=== PATIENT | female | born 1985 | race Two or more races ===

== ENCOUNTER → 2017-08-31 | Outpatient (REF) | payer OTHER | LOC: M LAB REF 10:09 | DX: J02.9 Acute pharyngitis, unspecified (principal) ==

== ENCOUNTER 2018-05-01 18:35 | Emergency (ER) | payer OTHER ==
[~2018-05-01] VITALS: Ht 160 cm; Wt 68.2 kg
[2018-05-01 18:36] VITALS: BP 139/71
[2018-05-01] MEDS ORDERED: VENTAER (18:41)
[2018-05-01] MEDS ORDERED: CETI10TA (18:41)
[2018-05-01] MEDS ORDERED: LIDOCAINE 2% MDV 20 ML VIAL SC ONE (19:45)
[2018-05-01] MEDS ORDERED: ADACEL/BOOSTRIX VACCINE (DIPHTH/PERTUSS/ACELL/TETANUS)0.5ML SYR (90715) IM ONE (19:45)
[2018-05-01] MEDS ORDERED: LIDOCAINE 2% MDV 20 ML VIAL As Ordered ONE (19:46)
--- NOTE | 2018-05-01 19:46 | REP ---
Fifth digit right hand four views: There is a nondisplaced fracture at the distal tuft of the distal phalange. No other fractures. No dislocations. Mineralization joint spaces are otherwise unremarkable. Impression: The distal tuft nondisplaced fracture. Electronically Signed by Adrián Castaneda MD 05/01/2018 07:37 P
[2018-05-01] MEDS ORDERED: CEPHALEXIN 500 MG CAP PO ONE (20:15)
[2018-05-01] MEDS ORDERED: KEFL500C17 PO (20:15)
[2018-05-01] MEDS ORDERED: NORCOTAB PO (20:15)
[2018-05-01] MEDS ORDERED: NORCO 5/325MG TABLET (BULK FOR ED) PO ONE (20:15)
== END 2018-05-01 20:31 | disposition home or self-care (01) ==
LOC: M ED 18:35
DX: S62.664B Nondisplaced fracture of distal phalanx of right ring finger, initial encounter for open fracture (principal); W23.0XXA Caught, crushed, jammed, or pinched between moving objects, initial encounter; Y92.018 Other place in single-family (private) house as the place of occurrence of the external cause; J30.89 Other allergic rhinitis

== ENCOUNTER → 2018-06-12 | Outpatient (REF) | payer OTHER ==
[~2018-06-12] MED LIST: CETI10TA; KEFL500C17 PO; NORCOTAB PO; VENTAER
[2018-06-12 19:50] LABS: ALBUMIN 4.2 GM/DL (3.2-5.2); ALT/SGPT 28 U/L (12-78); BILIRUBIN,TOTAL 0.3 MG/DL (0.2-1.0); BLOOD UREA NITROGEN 23 MG/DL (7-18); CALCIUM LEVEL 8.6 MG/DL (8.5-10.1); CARBON DIOXIDE LEVEL 27 MEQ/L (21-32); CHLORIDE LEVEL 105 MEQ/L (98-107); CREATININE FOR GFR 0.68 MG/DL (0.55-1.30); GLOMERULAR FILTRATION RATE > 60.0 (>60); GLUCOSE, FASTING 79 MG/DL (70-100); POTASSIUM SERUM 3.7 MEQ/L (3.5-5.1); SODIUM LEVEL 140 MEQ/L (136-145); TOTAL PROTEIN 7.3 GM/DL (6.4-8.2)
[2018-06-12 20:08] LABS: BASO % 0.4 % (0.0-1.0); EOS # 0.1 10^3/uL (0.0-0.50); EOS % 0.7 % (0.0-3.0); HEMATOCRIT 36.5 % (36.0-47.0); HEMOGLOBIN 12.6 g/dl (12.0-15.5); LYMPH # 2.3 10^3/uL (1.5-4.5); LYMPH % 22.7 % (24.0-44.0); MEAN CORPUSCULAR HGB CONC 34.5 g/dl (32.0-36.5); MEAN CORPUSCULAR VOLUME 89.9 fl (80.0-96.0); MONO # 0.6 10^3/uL (0.0-0.8); MONO % 5.6 % (0.0-5.0); NEUTROPHILS # 7.2 10^3/uL (1.8-7.7); NEUTROPHILS % 70.4 % (36.0-66.0); PLATELET COUNT, AUTOMATED 239 10^3/uL (150-450); RED BLOOD COUNT 4.06 10^6/uL (4.00-5.40); WHITE BLOOD COUNT 10.2 10^3/uL (4.0-10.0)
== END ==
LOC: M LABDRWAD 19:16
PROVIDERS: ATTEND Physician Assistant
DX: K92.1 Melena (principal)

== ENCOUNTER → 2018-12-26 | Outpatient (REF) | payer OTHER ==
[~2018-12-26] MED LIST changes: +HYDR-3715 PO; -NORCOTAB PO
[2018-12-29 11:13] LABS: HEPATITIS B SURFACE ANTIBODY POSITIVE (POSITIVE); HEPATITIS C VIRUS ABY INDEX 0.1 INDEX (<0.8); HIV 1&2 SCREEN CENTAUR NEGATIVE (NEGATIVE)
[2018-12-29 14:33] LABS: CHLAMYDIA DNA AMPLIFICATION NEGATIVE (NEGATIVE); GC DNA AMPLIFICATION NEGATIVE (NEGATIVE)
[2018-12-30 09:57] LABS: HCG, SERUM QUALITATIVE NEGATIVE (NEGATIVE)
== END ==
LOC: M SFHCWAGY 14:57
PROVIDERS: ATTEND Nurse Practitioner Family
DX: Z11.3 Encounter for screening for infections with a predominantly sexual mode of transmission (principal); N92.6 Irregular menstruation, unspecified

== ENCOUNTER → 2019-01-20 | Outpatient (REF) | payer OTHER | LOC: M SFHCWAGY 11:08 | PROVIDERS: ATTEND Nurse Practitioner Family | DX: Z12.4 Encounter for screening for malignant neoplasm of cervix (principal) ==

== ENCOUNTER 2019-02-01 08:04 | Emergency (ER) | payer OTHER ==
[~2019-02-01] VITALS: Ht 162.6 cm; Wt 69.8 kg
[2019-02-01] MEDS ORDERED: NORG1TAB4 (08:19)
[2019-02-01 10:39] LABS: INFLUENZA A AMPLIFICATION NEGATIVE (NEGATIVE); INFLUENZA B AMPLIFICATION NEGATIVE (NEGATIVE)
--- NOTE | 2019-02-01 11:03 | REP ---
Chest x-ray: Two views. History: Abnormal breath sounds on the right. . Comparison study: April 15, 2013 . Findings: The lungs are well inflated and free of infiltrate. The pleural angles are sharp. The heart size is normal. Pulmonary vasculature is not increased. No significant bony abnormality is seen. Nipple jewelry is noted incidentally. There is a small epicardial fat pad noted in the right cardiophrenic angle. This is unchanged from April 15, 2013. Impression: Negative chest x-ray. Electronically Signed by José Miguel Hernandez MD 02/01/2019 10:55 A
[2019-02-01 11:15] VITALS: BP 133/77
[2019-02-01] MEDS ORDERED: AUGM875T28 PO (11:18)
== END 2019-02-01 11:37 | disposition home or self-care (01) ==
LOC: M ED 08:04
DX: J01.90 Acute sinusitis, unspecified (principal); J45.909 Unspecified asthma, uncomplicated; Z79.3 Long term (current) use of hormonal contraceptives; Z87.891 Personal history of nicotine dependence

== ENCOUNTER → 2019-02-02 | Outpatient (CLI) | payer OTHER ==
[~2019-02-02] MED LIST changes: +AUGM875T28 PO; +NORG1TAB4
--- NOTE | 2019-02-02 09:16 | REP ---
ULTRASOUND ANTERIOR ABDOMINAL WALL: Real-time sonographic evaluation of the anterior abdominal wall performed for left upper quadrant tenderness. There is also a palpable lump midline above the umbilicus. In the midline of the supraumbilical anterior abdominal wall, approximately 3-4 cm superior to the umbilicus, there is hypoechoic tissue, which appears to represent mesenteric fat protruding through a defect in the midline of the anterior abdominal wall. The defect measures approximately 2 mm in diameter. This is not reducible. IMPRESSION: There appears to be a 2 mm defect in the anterior abdominal wall midline superior to the umbilicus with protrusion of mesenteric fat, the hernia sac measuring 1.7 x 0.6 x 0.7 cm. Electronically Signed by Adrián Barrett MD 02/03/2019 08:37 P
== END ==
LOC: M RAD 07:59
PROVIDERS: ATTEND Physician Assistant
DX: R10.812 Left upper quadrant abdominal tenderness (principal)

== ENCOUNTER → 2019-03-13 | Outpatient (CLI) | payer OTHER ==
[~2019-03-13] MED LIST changes: +PARA1IUD IU
--- NOTE | 2019-03-13 14:10 | REP ---
BILATERAL DIAGNOSTIC MAMMOGRAM WITH 3D TOMOSYNTHESIS, BILATERAL BREAST ULTRASOUND: Family history of breast cancer in paternal grandmother. [facility] lifetime risk of breast cancer, 20.1%. Given the extremely dense breast parenchyma and lifetime risk of breast cancer over 20%, recommend MRI of the breasts. Baseline mammogram, no prior studies for comparison. History of a lump palpated by the patient at 4-o'clock position right breast. Referring clinician palpated three lumps in the right breast at 10-o'clock position, 11-o'clock position, and 12-o'clock position, as well as a palpable abnormality in the left breast at 12-o'clock position. These areas are marked on the skin. MLO and CC views of both breasts performed with additional compression views. There is extremely dense breast parenchyma. It is heterogeneous. No discrete mass is seen, and there is no evidence for architectural distortion. No clustered microcalcifications are seen. Bilateral breast ultrasound performed at the site of the aforementioned palpable lumps. Diffuse dense fibroglandular tissue is noted sonographically. There is a hypoechoic nodule at 11-o'clock position of the right breast measuring 9 x 4 x 9 mm, which is not a simple cyst. No other nodule is seen sonographically bilaterally at the site of the palpable lumps. IMPRESSION: BIRADS 4: BI-RADS/ACR category 4 mammogram. Suspicious Abnormality - biopsy should be considered. Extremely dense breast parenchymal tissue bilaterally limits the sensitivity of the mammogram. No mass or clustered microcalcifications are seen. Sonographically, there is evidence of a solid oval nodule at 11-o'clock position right breast measuring 9 x 4 x 9 mm. No other cystic or solid nodule is seen sonographically at any of the other sites of palpable lumps. Recommend ultrasound-guided biopsy of the right breast nodule at 11-o'clock position. ACR 4 suspicious. This mammogram was interpreted with the aid of an FDA-approved computer-aided detection system. The patient states she/he had a clinical breast exam in 02/2019. The patient letter being requested is M4. Electronically Signed by Adrián Barrett MD 03/13/2019 05:14 P
== END ==
LOC: M RAD 09:06
PROVIDERS: ATTEND Surgery
DX: R92.8 Other abnormal and inconclusive findings on diagnostic imaging of breast (principal); N63.11 Unspecified lump in the right breast, upper outer quadrant
CPT/HCPCS: 76642; 77066; G0279

== ENCOUNTER 2019-03-20 06:24 | Day surgery (SDC) | payer OTHER ==
[~2019-03-20] VITALS: Ht 162.6 cm; Wt 68.9 kg
[~2019-03-20 06:24] MED LIST changes: +LR 1,000 ML IV ONE
[2019-03-20] MEDS ORDERED: fentaNYL 250 MCG/5 ML INJECTION (J3010) As Ordered ONE (07:10)
[2019-03-20] MEDS ORDERED: MIDAZOLAM INJ 2 MG/2 ML VIAL (J2250) As Ordered ONE (07:10)
[2019-03-20] MEDS ORDERED: ROCURONIUM BROMIDE 50 MG/5 ML VIAL As Ordered ONE (07:10)
[2019-03-20] MEDS ORDERED: LIDOCAINE 2% INJ 100 MG/5 ML SDV (FOR ANES.) As Ordered ONE (07:10)
[2019-03-20] MEDS ORDERED: PROPOFOL 200 MG/20 ML VIAL As Ordered ONE (07:10)
[2019-03-20] MEDS ORDERED: BUPIVACAINE HCL 0.25% 30 ML VIAL As Ordered ONE ×2 (07:52→08:32)
[2019-03-20] MEDS ORDERED: KETOROLAC 60 MG/2 ML VIAL (J1885) As Ordered ONE (09:11)
[2019-03-20] MEDS ORDERED: ONDANSETRON 4MG/2ML VIAL (J2405) As Ordered ONE (09:11)
[2019-03-20] MEDS ORDERED: dexameTHASONE 4 MG/ML 1ML VIAL (J1100) As Ordered ONE (09:11)
[2019-03-20] MEDS ORDERED: ACETAMINOPHEN 1000MG 100ML IV BTL (OFIRMEV) (J0131 PER 10MG) As Ordered ONE (09:29)
[2019-03-20] MEDS ORDERED: SUGAMMADEX SODIUM 500 MG/5 ML VIAL (BRIDION) As Ordered ONE (09:53)
[2019-03-20] MEDS ORDERED: LR 1,000 ML IV SCH (11:00)
[2019-03-20] MEDS ORDERED: fentaNYL 100 MCG/2 ML INJECTION (J3010) IV PRN (11:00)
[2019-03-20] MEDS ORDERED: METOCLOPRAMIDE INJ 10MG/2ML VIAL (J2765) IV PRN (11:00)
[2019-03-20] MEDS ORDERED: MORPHINE 2 MG/ML 1ML VIAL (J2270) IV PRN (11:00)
[2019-03-20] MEDS ORDERED: oxyCODONE 5MG TAB PO PRN (11:00)
[2019-03-20] MEDS ORDERED: ONDANSETRON 4MG/2ML VIAL (J2405) IV PRN (11:00)
[2019-03-20 11:50] VITALS: BP 132/76
[2019-03-20] MEDS ORDERED: IBUPROFEN 600 MG TAB PO PRN (12:00)
[2019-03-20] MEDS ORDERED: NORCO, ANEXSIA 5/325MG TABLET (HYDROcodone/ACETAMINOPHEN) PO PRN (12:00)
[2019-03-20] MEDS ORDERED: ACETAMINOPHEN TAB 650MG DOSE (2X325MG) PO PRN (12:00)
--- NOTE | 2019-03-20 16:55 | RO ---
DATE OF PROCEDURE: 03/20/2019 PREOPERATIVE DIAGNOSIS: Epigastric ventral hernia. POSTOPERATIVE DIAGNOSIS: Epigastric ventral hernia. PROCEDURE PERFORMED: Open repair of an epigastric hernia. SURGEON: Dr. Reji Ruiz BLOCK STACKER: ANESTHESIA: General. INDICATIONS FOR PROCEDURE: The patient is a 33-year-old woman who has noticed a small bulge along the midline of the upper abdomen about 3-4 cm above the umbilicus. This was confirmed on physical exam, and she is now for repair of an epigastric ventral hernia. DESCRIPTION OF PROCEDURE: The patient was brought to the operating room and placed on the table in a supine position. She was placed under general endotracheal anesthesia. The patient's abdomen was prepped and draped in a sterile fashion. An approximately 2-1/2 cm transverse skin incision was made across the midline in the epigastrium at the marked site of her hernia. The incision was deepened into the subcutaneous tissues using the cautery. The tissues were then opened down to the fascia. A small protrusion of fatty tissue was noted through the fascia. This appeared to be just slightly to the left of the midline and was a transversely oriented split in the fascia, about 7 mm in length. The defect was exposed by clearing away some of the overlying fibrofatty tissue. The fat protruding through the opening was reduced beneath the fascia, and the fascia was approximated with three simple sutures of #3-0 silk. Inspection of the fascia revealed no other defects in the area. The subcutaneous tissues were approximated with #3-0 chromic. The skin edges were brought together with buried #3-0 chromic and the skin edges were approximated with a running subcuticular #4-0 Vicryl and Steri-Strips. Some 0.25% Marcaine was infiltrated about the incision. The patient tolerated the procedure well. She was awakened in the operating room, extubated and moved to the recovery room in stable condition.
== END 2019-03-20 12:04 | disposition home or self-care (01) ==
LOC: M SDC 06:24
PROVIDERS: ATTEND Surgery
DX: K43.9 Ventral hernia without obstruction or gangrene (principal); K59.00 Constipation, unspecified; J45.909 Unspecified asthma, uncomplicated
CPT/HCPCS: 49560; 81025; J0131; J1100; J1885; J2250; J2405; J3010

== ENCOUNTER → 2019-03-30 | Outpatient (CLI) | payer OTHER ==
[~2019-03-30] MED LIST changes: +HYDR-3713 PO; +LIDOCAINE 1% MDV 20ML VIAL As Ordered ONE; -LR 1,000 ML IV ONE; +SODIUM BICARBONATE 8.4% INJ 50MEQ 50 ML VIAL As Ordered ONE
[2019-03-30 09:39] VITALS: BP 145/70
--- NOTE | 2019-03-30 10:59 | REP ---
DIGITAL DIAGNOSTIC BILATERAL MAMMOGRAPHY WITH CAD: HISTORY: Marker clip placement mammography. The patient status post ultrasound-guided needle biopsy for two separate targets in the right breast. Comparison mammography: March 13, 2019 MAMMOGRAPHIC FINDINGS: There is a marker clip at approximately 12-o'clock position and another in the inferomedial quadrant of the right breast. There is no evidence of hematoma. No soft tissue mass is seen. IMPRESSION: Marker clip placement views. Electronically Signed by José Miguel Hernandez MD 03/30/2019 02:47 P
--- NOTE | 2019-03-30 20:02 | ROOPDOC ---
[facility] Report Of Operation Report of Operation DATE OF PROCEDURE: 03/30/19 PREPROCEDURE DIAGNOSES: Right breast masses POSTPROCEDURE DIAGNOSES: Right breast masses PROCEDURE: Ultrasound guided biopsy of 2 right breast masses SURGEON: Julio Cesar De D.O. CABLE ENGINEER: ANESTHESIA: local anesthetic, 19 cc ESTIMATED BLOOD LOSS: Approximately 1 mL. COMPLICATIONS: none DESCRIPTION OF PROCEDURE: Lidocaine 1% LOT [id number] Expiration Sodium Bicarbonate 8.4% LOT [id number] Expiration May Hydromark clip Shape 3 LOT [id number] Expiration Dec (4:00 site) Hydromark clip Shape 4 LOT [id number] Expiration (11:00 site) Bx device: BARD [id number] x10 cm LOT [id number] Expiration Informed consent was obtained in the preop area. The most common risk and possible complications including bleeding, hematoma, bruising, infection, injury to surrounding structures were explained to the patient and she expressed understanding. Patient was taken to the procedure room and placed on the bed in the supine position with the right upper extremity placed above the head. Appropriate time out was done stating patients name, date of , and the procedure to be performed. The right breast was prepped and draped in the usual fashion. The ultrasound was used to confirm the location of the image detected lesion in the right breast at 11:00 and palpable lesion at 4:00. Plain Lidocaine 1% and 8.4% sodium bicarbonate 10:1 mix was used to numb the skin, the biopsy site and tissues along the anticipated biopsy tract. Small skin incision was made with blade number 11. BARD Marquee 14G cannula with introducer ([id number]) was inserted through the incision and advanced under the ultrasound guidance to position immediately adjacent to the lesion. Next, the introducer was removed and BARD Marquee 14G biopsy device was places in the cannula. Pre-biopsy imaging, and post-biopsy imaging were captured. Five good core biopsies were taken at various levels of the lesion. After that, the biopsy device was withdrawn and a clip marked introducer was inserted into the biopsy site via the cannula. The Shape 4 Hydromark clip was deployed under direct vision. Post-clip placement image was captured. Manual pressure over the biopsy cavity and tract was held after the clip introducer was withdrawn. No bleeding was noted upon removal of the pressure. Next, attention was turned toward palpable lesion at 4:00. Plain Lidocaine 1% and 8.4% sodium bicarbonate 10:1 mix was used to numb the skin, the biopsy site and tissues along the anticipated biopsy tract. Small skin incision was made with blade number 11. BARD Marquee 14G cannula with introducer ([id number]) was inserted through the incision and advanced under the ultrasound guidance to position immediately adjacent to the lesion. Next, the introducer was removed and BARD Marquee 14G biopsy device was places in the cannula. Pre-biopsy imaging, and post-biopsy imaging were captured. Five good core biopsies were taken at various levels of the lesion. After that, the biopsy device was withdrawn and a clip marked introducer was inserted into the biopsy site via the cannula. The Shape 3 Hydromark clip was deployed under direct vision. Post-clip placement image was captured. Manual pressure over the biopsy cavity and tract was held after the clip introducer was withdrawn. No bleeding was noted upon removal of the pressure. Post-biopsy mammogram of the right breast was obtained and showed clips in expected position. Postprocedural dressing was placed. Patient tolerated procedure well and was taken to the recovery unit in stable condition. Discharge instructions were discussed with the patient and she expressed understanding. JULIO CESAR Rios DO Mar 30, 2019 20:02
== END ==
LOC: M IRPRO 08:04
PROVIDERS: ATTEND Surgery
DX: N60.11 Diffuse cystic mastopathy of right breast (principal)

== ENCOUNTER → 2019-04-27 | Outpatient (REF) | payer OTHER ==
[~2019-04-27] MED LIST changes: -LIDOCAINE 1% MDV 20ML VIAL As Ordered ONE; -SODIUM BICARBONATE 8.4% INJ 50MEQ 50 ML VIAL As Ordered ONE
[2019-04-27 22:49] LABS: CHLAMYDIA DNA AMPLIFICATION NEGATIVE (NEGATIVE); GC DNA AMPLIFICATION NEGATIVE (NEGATIVE)
== END ==
LOC: M SFHCWAGY 16:59
PROVIDERS: ATTEND Nurse Practitioner Family
DX: Z11.3 Encounter for screening for infections with a predominantly sexual mode of transmission (principal)

== ENCOUNTER → 2019-05-27 | Outpatient (CLI) | payer OTHER ==
--- NOTE | 2019-05-27 13:09 | REP ---
Right hand series: Four views. History: Contusion. Findings: Four views of the right hand demonstrate normal bones, joints, and soft tissues. No fracture or subluxation is seen. Impression: Negative right hand radiographs. Electronically Signed by José Miguel Hernandez MD 05/27/2019 01:01 P
== END ==
LOC: M ADAMS 12:37
PROVIDERS: ATTEND Physician Assistant
DX: S60.221A Contusion of right hand, initial encounter (principal); X58.XXXA Exposure to other specified factors, initial encounter; Y92.9 Unspecified place or not applicable; Y93.9 Activity, unspecified; Y99.9 Unspecified external cause status

== ENCOUNTER → 2019-09-17 | Outpatient (CLI) | payer OTHER ==
--- NOTE | 2019-09-17 09:18 | REP ---
FOCUSED RIGHT BREAST SONOGRAPHY: HISTORY: Followup. Mass multiple sites right breast. Comparison mammography and sonography March 13, 2019 and March 30, 2019. On the latter of these two days, the patient underwent ultrasound-guided needle biopsy for a 9 mm hypoechoic nodule seen at the 11-o'clock position on the original ultrasound as well as a palpation directed biopsy 4-o'clock position in the right breast. TODAY'S SONOGRAPHIC FINDINGS: In the right breast, scanning in 11-o'clock position 3 cm from the nipple at the prior biopsy site visualizes the HydroMARK clip and its accompanying hypoechoic fluid cylinder. The original nodule is no longer apparent. At the 4-o'clock position, 3 cm from the nipple at the prior biopsy site the marker clip placed at the time of the 03/30/2019 biopsy is observed. No other sonographic findings.
== END ==
LOC: M WHC 07:57
PROVIDERS: ATTEND Surgery
DX: M79.5 Residual foreign body in soft tissue (principal)

== ENCOUNTER → 2019-09-17 | Outpatient (CLI) | payer OTHER | LOC: M PLALAB 09:10 | PROVIDERS: ATTEND Surgery | DX: Z13.79 Encounter for other screening for genetic and chromosomal anomalies (principal) ==

== ENCOUNTER → 2019-11-13 | Outpatient (CLI) | payer OTHER ==
[~2019-11-13] MED LIST changes: +ALBU8.5H; +DOK1CAP7; +MULTCAP PO; +PROHANCE 279.3MG/ML 15ML VIAL As Ordered ONE; +ZINC1TAB2 PO
--- NOTE | 2019-12-15 09:52 | REP ---
MRI BILATERAL BREASTS WITH AND WITHOUT CONTRAST HISTORY: High risk for breast cancer, comparison mammogram 03/13/2019, history of benign left breast biopsies, other report read. TECHNIQUE: Multiple sequences obtained in the axial, coronal, and sagittal planes prior to and following the intravenous administration of 13 mL ProHance. Images are evaluated in the [employer] software including dynamic post IV gadolinium axial T1 fat sat images, subtraction images, color overlay images, and CAD imaging. FINDINGS: There is an extreme pattern of parenchymal tissue bilaterally in a fairly symmetrical pattern. No significant cystic changes seen. There is mild to moderate background parenchymal enhancement. There is no axillary adenopathy. There is a biopsy marking clip in the upper outer quadrant of the right breast surrounded by a very small amount of post biopsy fluid. Similarly, there is a biopsy clip surrounded by a very small amount of fluid in the lower inner right breast. I see no suspicious enhancing mass or morphologic abnormality. IMPRESSION: BI-RADS category 2 benign bilateral breast MRI. Extreme pattern of parenchymal tissues with mild to moderate background parenchymal enhancement. Biopsy marking clips in the upper outer quadrant of the right breast and lower inner quadrant of the right breast. No suspicious enhancing mass or morphologic abnormality. [facility]
== END ==
LOC: M RAD 14:46
PROVIDERS: ATTEND Surgery
DX: Z12.39 Encounter for other screening for malignant neoplasm of breast (principal); Z86.018 Personal history of other benign neoplasm
CPT/HCPCS: A9576; C8908

== ENCOUNTER 2020-01-09 14:55 | Emergency (ER) | payer OTHER ==
[~2020-01-09] VITALS: Ht 160 cm; Wt 73.6 kg
[~2020-01-09 14:55] MED LIST changes: -ALBU8.5H; -DOK1CAP7; -MULTCAP PO; -PROHANCE 279.3MG/ML 15ML VIAL As Ordered ONE; -ZINC1TAB2 PO
[2020-01-09 14:57] VITALS: BP 162/85
[2020-01-09] MEDS ORDERED: ALBU8.5H (15:06)
== END 2020-01-09 16:07 | disposition home or self-care (01) ==
LOC: M ED 14:55
DX: S80.11XA Contusion of right lower leg, initial encounter (principal); W22.8XXA Striking against or struck by other objects, initial encounter; Y92.89 Other specified places as the place of occurrence of the external cause; Y99.0 Civilian activity done for income or pay; J45.909 Unspecified asthma, uncomplicated; Z91.048 Other nonmedicinal substance allergy status; F17.210 Nicotine dependence, cigarettes, uncomplicated

== ENCOUNTER 2020-01-17 16:41 | Emergency (ER) | payer OTHER ==
[~2020-01-17] VITALS: Ht 160 cm; Wt 65.9 kg
[~2020-01-17 16:41] MED LIST changes: +ALBU8.5H
[2020-01-17] MEDS ORDERED: ASPIRIN 81 MG CHEW TABLET PO ONE (17:00)
[2020-01-17] MEDS ORDERED: NS 1,000 ML IV ONE (17:00)
[2020-01-17] MEDS ORDERED: MULTCAP PO (17:01)
[2020-01-17] MEDS ORDERED: ZINC1TAB2 PO (17:01)
[2020-01-17] MEDS ORDERED: DOK1CAP7 (17:01)
[2020-01-17 17:21] LABS: BASO # 0.1 10^3/uL (0.0-0.2); BASO % 0.7 % (0.0-1.0); EOS # 0.2 10^3/uL (0.0-0.5); EOS % 2.3 % (0.0-3.0); HEMATOCRIT 41.4 % (36.0-47.0); LYMPH # 3.1 10^3/uL (1.5-5.0); LYMPH % 33.6 % (24.0-44.0); MEAN CORPUSCULAR HEMOGLOBIN 30.6 pg (27.0-33.0); MEAN CORPUSCULAR HGB CONC 33.8 g/dl (32.0-36.5); MEAN CORPUSCULAR VOLUME 90.6 fl (80.0-96.0); MONO # 0.8 10^3/uL (0.0-0.8); MONO % 8.4 % (0.0-5.0); NEUTROPHILS % 54.8 % (36.0-66.0); PLATELET COUNT, AUTOMATED 281 10^3/uL (150-450); RED BLOOD COUNT 4.57 10^6/uL (4.00-5.40); WHITE BLOOD COUNT 9.1 10^3/uL (4.0-10.0)
--- NOTE | 2020-01-17 17:25 | REPVR ---
PROCEDURE INFORMATION: Exam: XR Chest, 1 View Exam date and time: 01/17/2020 5:20 PM Age: 34 years old Clinical indication: Chest pain; Type not specified TECHNIQUE: Imaging protocol: XR of the chest Views: 1 view. COMPARISON: CR Chest, 2 view PA, Lat 04/15/2013 7:20 PM FINDINGS: Lungs: Unremarkable. No consolidation. Pleural space: Unremarkable. No pleural effusion. No pneumothorax. Heart/Mediastinum: Unremarkable. No cardiomegaly. Bones/joints: Unremarkable. IMPRESSION: No acute findings. Electronically signed by: Cheikh Valentino On 01/17/2020 17:24:46 PM
[2020-01-17 17:32] LABS: INR 0.9; PROTHROMBIN TIME 12.3 SECONDS (12.5-14.3)
[2020-01-17 17:44] LABS: ALBUMIN 4.2 GM/DL (3.2-5.2); ALT/SGPT 29 U/L (12-78); BILIRUBIN,DIRECT < 0.1 MG/DL (0.0-0.2); BILIRUBIN,TOTAL 0.2 MG/DL (0.2-1.0); BLOOD UREA NITROGEN 12 MG/DL (7-18); CALCIUM LEVEL 8.5 MG/DL (8.5-10.1); CARBON DIOXIDE LEVEL 24 MEQ/L (21-32); CHLORIDE LEVEL 109 MEQ/L (98-107); CK-MB VALUE MASS < 1.0 NG/ML (<3.6); CPK CREATINE PHOSPHOKINASE 166 U/L (26-192); CREATININE FOR GFR 0.78 MG/DL (0.55-1.30); FREE THYROXINE INDEX 2.2 % (1.3-4.8); GLOMERULAR FILTRATION RATE > 60.0 (>60); GLUCOSE, FASTING 98 MG/DL (70-100); LIPASE 139 U/L (73-393); MAGNESIUM LEVEL 2.2 MG/DL (1.8-2.4); POTASSIUM SERUM 3.8 MEQ/L (3.5-5.1); SODIUM LEVEL 140 MEQ/L (136-145); T UPTAKE 30 % (30-39); THYROXINE (T4) 7.4 UG/DL (4.5-12.0); TOTAL PROTEIN 7.4 GM/DL (6.4-8.2); TROPONIN I < 0.02 NG/ML (< 0.10)
[2020-01-17 18:15] VITALS: BP 161/91
--- NOTE | 2020-01-18 07:54 | ECGEPIP ---
[facility] - ED Test Date: 2020-01-17 Pat Name: TOMI JOHNSON Department: Room: - Gender: Female Healthcare Management: RADHA : 1985 Requested By: KINDRA MCMULLEN Order Number: [id number] Reading MD: Loan Wild Measurements Intervals [place] Rate: 82 P: 61 CO: 156 QRS: -5 QRSD: 99 T: 31 QT: 343 QTc: 402 Interpretive Statements SINUS RHYTHM WITH SINUS ARRHYTHMIA INCOMPLETE RIGHT BUNDLE BRANCH BLOCK NO PRIOR Electronically Signed on 01-18-2020 7:53:49 EST by Loan Wild
== END 2020-01-17 18:35 | disposition home or self-care (01) ==
LOC: M ED 16:41
DX: R07.89 Other chest pain (principal); R00.2 Palpitations; J45.909 Unspecified asthma, uncomplicated; Z91.048 Other nonmedicinal substance allergy status; F17.210 Nicotine dependence, cigarettes, uncomplicated

== ENCOUNTER → 2020-06-08 | Outpatient (CLI) | payer OTHER ==
[~2020-06-08] MED LIST changes: +DOK1CAP7; +MULTCAP PO; +ZINC1TAB2 PO
--- NOTE | 2020-06-08 14:26 | REPMRS ---
Patient History The patient states she has not had a clinical breast exam in over a year. Family history of pancreatic cancer in paternal uncle, pancreatic cancer in paternal uncle, pancreatic cancer in paternal cousin, unknown cancer in paternal cousin, breast cancer in paternal grandmother, unknown cancer in paternal aunt, prostate cancer in paternal uncle, colorectal cancer in maternal grandfather. Benign US guided breast biopsy of the right breast, March 30, 2019. No Hormone Replacement Therapy Digital Woman Screen Mammo: June 08, 2020 - Exam #: [id number] Bilateral CC and MLO view(s) were taken. Technologist: Siobhan Blevins, Technologist Prior study comparison: March 30, 2019, right breast digital mammo diagnostic unilateral, performed at [facility]. March 13, 2019, digital mammo diagnostic bilateral, performed at [facility]. FINDINGS: The breast tissue is heterogeneously dense. This may lower the sensitivity of mammography. The Volpara volumetric breast density category is: C. There is a moderate amount of heterogeneously dense fibroglandular tissue which is fairly symmetric. There is no interval development of dominant mass, architectural distortion, or grouped microcalcification typical of malignancy. There has been no change in the appearance of the mammogram from the prior studies. 3-D tomosynthesis shows no additional findings. Assessment: BI-RADS/ACR category 1 mammogram. Negative Mammogram. Recommendation Routine screening mammogram of both breasts in 1 year (for women over age 40). This patient's [facility] Lifetime Breast Cancer RIsk is estimated at 19.9 %. This mammogram was interpreted with the aid of an FDA-approved computer-aided dectection system. Electronically Signed By: Bobo Hernandez MD 06/08/20 [id number]
== END ==
LOC: M WHC 12:38
PROVIDERS: ATTEND Surgery
DX: Z12.31 Encounter for screening mammogram for malignant neoplasm of breast (principal); Z91.89 Other specified personal risk factors, not elsewhere classified

== ENCOUNTER 2020-06-22 14:58 | Emergency (ER) | payer OTHER ==
[~2020-06-22] VITALS: Ht 160 cm; Wt 66.8 kg
[2020-06-22] MEDS ORDERED: ceFAZolin SOD 2 GM in IV 1 EA IV ONE (15:25)
[2020-06-22] MEDS ORDERED: ONDANSETRON 4MG/2ML VIAL IV ONE (15:25)
[2020-06-22] MEDS ORDERED: MORPHINE 4 MG/ML 1ML VIAL/SYRINGE (J2270) IV ONE (15:25)
[2020-06-22 16:29] LABS: HCG, SERUM QUALITATIVE NEGATIVE (NEGATIVE)
--- NOTE | 2020-06-22 17:40 | REP ---
INDICATION: right hand lac over 3rd MCP COMPARISON: None. TECHNIQUE: Four views right hand. FINDINGS: There is no evidence of acute fracture, dislocation, or intrinsic bone disease.No radiopaque foreign body is seen in the soft tissues. IMPRESSION: No fracture or dislocation. No radiopaque foreign body is seen in the soft tissues. <Electronically signed by Adrián Barrett > 06/22/20 [id number]
[2020-06-22] MEDS ORDERED: LIDOCAINE 1% MDV 20ML VIAL SC ONE (18:20)
[2020-06-22] MEDS ORDERED: NEOSPORIN OINT 0.9 GM PKT TOP ONE (18:50)
[2020-06-22] MEDS ORDERED: AUGM875T28 PO (18:58)
[2020-06-22 19:00] VITALS: BP 128/70
== END 2020-06-22 19:06 | disposition home or self-care (01) ==
LOC: M ED 14:58
DX: S61.212A Laceration without foreign body of right middle finger without damage to nail, initial encounter (principal); S66.312A Strain of extensor muscle, fascia and tendon of right middle finger at wrist and hand level, initial encounter; W26.8XXA Contact with other sharp object(s), not elsewhere classified, initial encounter; Y92.010 Kitchen of single-family (private) house as the place of occurrence of the external cause; F17.210 Nicotine dependence, cigarettes, uncomplicated
CPT/HCPCS: 12001; 73130; 84703; 96365; 96375; 99284; J0690; J2270; J2405

== ENCOUNTER → 2020-09-09 | Outpatient (REF) | payer OTHER ==
[2020-09-09 11:20] LABS: FREE T4 0.82 NG/DL (0.76-1.46); THYROID STIMULATING HORMONE 0.468 uIU/ML (0.358-3.740)
== END ==
LOC: M PLALAB 08:54
PROVIDERS: ATTEND Surgery
DX: N64.52 Nipple discharge (principal)

== ENCOUNTER → 2020-11-18 | Outpatient (CLI) | payer OTHER ==
[~2020-11-18] MED LIST changes: +DOK1CAP4; -DOK1CAP7; +PROHANCE 279.3MG/ML 15ML VIAL As Ordered ONE
--- NOTE | 2020-11-18 10:18 | REP ---
INDICATION: HIGH RISK FOR BREAST CA, DENSE BREASTS. COMPARISON: Comparison mammography June 08, 2020. Comparison bilateral breast MRI study November 13, 2019. TECHNIQUE: Three Edel MRI imaging was performed with a dedicated breast coil. Axial, coronal, and sagittal T1 and T2 weighted scans were obtained with and without fat saturation in the usual fashion. The study includes dynamically acquired post gadolinium-enhanced imaging with image subtraction. Maximum intensity projection and multi planar reformation imaging is included as well. This study is interpreted with the aid of [employer], an FDA approved computer aided detection (CAD) software program, on a dedicated breast MRI workstation. The gadolinium enhancement dose is 12 mL of intravenous ProHance. FINDINGS: There is a moderate to marked amount of fibroglandular tissue bilaterally corresponding with the mammographic pattern. There is minimal background parenchymal enhancement. There is no evidence of axillary lymphadenopathy or significant breast cystic change. High-resolution pre and post-contrast T1 and T2 weighted scans show no suspicious morphologic abnormality in either breast. Dynamically acquired sequential postcontrast images show no suspicious area of enhancement and washout kinetics in either breast to suggest malignancy. Subtraction images show no additional abnormality. Magnetic field susceptibility artifacts are noted inferior medially and superiorly in the right breast from the previously placed needle biopsy marker clips. IMPRESSION: BI-RADS category 2 benign bilateral breast MRI findings. <Electronically signed by Bobo Hernandez > 11/18/20 [id number]
== END ==
LOC: M RAD 08:24
PROVIDERS: ATTEND Surgery
DX: Z91.89 Other specified personal risk factors, not elsewhere classified (principal)
CPT/HCPCS: 77049; A9576

== ENCOUNTER 2021-02-11 14:06 | Inpatient (IN) | payer MEDICAID, OTHER ==
[~2021-02-11] VITALS: Ht 160 cm; Wt 70.0 kg
[~2021-02-11 14:06] MED LIST changes: -PROHANCE 279.3MG/ML 15ML VIAL As Ordered ONE
[2021-02-11 14:39] LABS: HEMATOCRIT 39.7 % (36.0-47.0); HEMOGLOBIN 13.5 g/dl (12.0-15.5); MEAN CORPUSCULAR HEMOGLOBIN 31.4 pg (27.0-33.0); MEAN CORPUSCULAR VOLUME 92.3 fl (80.0-96.0); PLATELET COUNT, AUTOMATED 244 10^3/uL (150-450); WHITE BLOOD COUNT 12.6 10^3/uL (4.0-10.0)
[2021-02-11 15:01] LABS: AMPHETAMINES LEVEL URINE NEGATIVE (NEGATIVE); BARBITURATES URINE NEGATIVE (NEGATIVE); BENZODIAZEPINES URINE NEGATIVE (NEGATIVE); CANNABINOIDS URINE POSITIVE (NEGATIVE); COCAINE METABOLITE URINE NEGATIVE (NEGATIVE); METHADONE URINE NEGATIVE (NEGATIVE); OPIATES URINE NEGATIVE (NEGATIVE); PHENCYCLIDINE URINE NEGATIVE (NEGATIVE)
[2021-02-11 15:08] LABS: HCG, SERUM QUALITATIVE NEGATIVE (NEGATIVE)
[2021-02-11 15:12] LABS: ACETAMINOPHEN LEVEL < 2.0 UG/ML (10.0-30.0); ALBUMIN 4.8 GM/DL (3.2-5.2); ALT/SGPT 35 U/L (12-78); BILIRUBIN,DIRECT 0.3 MG/DL (0.0-0.2); BILIRUBIN,TOTAL 1.1 MG/DL (0.2-1.0); BLOOD UREA NITROGEN 13 MG/DL (7-18); CALCIUM LEVEL 8.9 MG/DL (8.5-10.1); CARBON DIOXIDE LEVEL 24 MEQ/L (21-32); CHLORIDE LEVEL 108 MEQ/L (98-107); CREATININE FOR GFR 0.68 MG/DL (0.55-1.30); ETHYL ALCOHOL (ETHANOL) < 0.003 % (0.000-0.010); GLOMERULAR FILTRATION RATE > 60.0 (>60); GLUCOSE, FASTING 121 MG/DL (70-100); POTASSIUM SERUM 3.8 MEQ/L (3.5-5.1); SALICYLATE LEVEL 1.9 MG/DL (5.0-30.0); SODIUM LEVEL 140 MEQ/L (136-145); THYROID STIMULATING HORMONE 0.841 uIU/ML (0.358-3.740)
[2021-02-11] MEDS ORDERED: HOME MED LIST COMPLETE! XX SCH (17:25)
[2021-02-11 17:44] LABS: RSV AMPLIFICATION NEGATIVE (NEGATIVE)
[2021-02-11] MEDS ORDERED: OLANZapine ORAL DISINTEGRATING TAB 5MG PO ONE (18:35)
[2021-02-13] MEDS ORDERED: traZODone 50 MG TAB PO PRN (16:50)
[2021-02-13] MEDS ORDERED: MAALOX 30 ML SUSP *UDC PO PRN (16:50)
[2021-02-13] MEDS ORDERED: NICOTINE 21MG/24HR 1 EA TRANSDERMAL TD PRN (16:50)
[2021-02-13] MEDS ORDERED: ACETAMINOPHEN TAB 650MG DOSE (2X325MG) PO PRN (16:50)
[2021-02-13] MEDS ORDERED: MOM 30ML SUSPENSION UDC PO PRN (16:50)
[2021-02-13] MEDS: DIVALPROEX 250 MG TAB PO SCH ×2 (23:16→23:35)
[2021-02-13] MEDS: OLANZapine 10 MG TAB PO SCH ×2 (23:16→23:36)
[2021-02-14 06:54] VITALS: BP 136/65
[2021-02-14] MEDS: OLANZapine 10 MG TAB PO SCH (08:10)
[2021-02-14] MEDS: DIVALPROEX 250 MG TAB PO SCH (08:10)
[2021-02-14] MEDS ORDERED: NICO14DI6 TOP (12:55)
== END 2021-02-14 15:53 | disposition home or self-care (01) | DRG 776 ==
LOC: M ED 14:06 → M ED INP 02-13 16:49 → M PSY 02-13 22:00
PROVIDERS: ADMIT Student in an Organized Health Care Education/Training Program; ATTEND Student in an Organized Health Care Education/Training Program
DX: F19.94 Other psychoactive substance use, unspecified with psychoactive substance-induced mood disorder (principal); F17.200 Nicotine dependence, unspecified, uncomplicated; F43.20 Adjustment disorder, unspecified

== ENCOUNTER → 2021-03-13 | Outpatient (REF) | payer MEDICAID, OTHER ==
[~2021-03-13] MED LIST changes: +NICO14DI6 TOP
== END ==
LOC: M SFHCWAGY 13:23
PROVIDERS: ATTEND Advanced Practice Midwife
DX: Z12.4 Encounter for screening for malignant neoplasm of cervix (principal)

== ENCOUNTER → 2021-05-23 | Outpatient (CLI) | payer OTHER | LOC: M WHC 15:43 | PROVIDERS: ATTEND Nurse Practitioner Women's Health | DX: Z53.9 Procedure and treatment not carried out, unspecified reason (principal); Z12.31 Encounter for screening mammogram for malignant neoplasm of breast; Z91.89 Other specified personal risk factors, not elsewhere classified; Z80.9 Family history of malignant neoplasm, unspecified ==

== ENCOUNTER → 2021-07-25 | Outpatient (CLI) | payer OTHER | LOC: M ADAMS 09:35 | PROVIDERS: ATTEND Physician Assistant Medical | DX: R07.89 Other chest pain (principal) ==

== ENCOUNTER → 2022-02-02 | Outpatient (REF) | payer OTHER ==
[~2022-02-02] MED LIST changes: -NORG1TAB4; +NORG1TAB40
== END ==
LOC: M PLALAB 09:54
PROVIDERS: ATTEND Nurse Practitioner Family
DX: Z11.3 Encounter for screening for infections with a predominantly sexual mode of transmission (principal)

== ENCOUNTER 2022-02-14 08:18 | Emergency (ER) | payer OTHER ==
[~2022-02-14] VITALS: Ht 160 cm; Wt 60.2 kg
[2022-02-14] MEDS ORDERED: METR0.759 (08:55)
[2022-02-14 09:09] LABS: BASO # 0.1 10^3/uL (0.0-0.2); BASO % 0.8 % (0.0-1.0); EOS # 0.1 10^3/uL (0.0-0.5); EOS % 1.4 % (0.0-3.0); HEMATOCRIT 42.5 % (36.0-47.0); HEMOGLOBIN 14.7 g/dl (12.0-15.5); LYMPH # 1.7 10^3/uL (1.5-5.0); LYMPH % 25.3 % (24.0-44.0); MEAN CORPUSCULAR HEMOGLOBIN 32.2 pg (27.0-33.0); MEAN CORPUSCULAR HGB CONC 34.6 g/dl (32.0-36.5); MEAN CORPUSCULAR VOLUME 93.2 fl (80.0-96.0); MONO # 0.5 10^3/uL (0.0-0.8); MONO % 7.7 % (2.0-8.0); NEUTROPHILS # 4.2 10^3/uL (1.5-8.5); NEUTROPHILS % 64.5 % (36.0-66.0); PLATELET COUNT, AUTOMATED 216 10^3/uL (150-450); RED BLOOD COUNT 4.56 10^6/uL (4.00-5.40); WHITE BLOOD COUNT 6.5 10^3/uL (4.0-10.0)
[2022-02-14 09:58] LABS: CHLORIDE LEVEL 105 MMOL/L (98-107); POTASSIUM SERUM 4.4 MMOL/L (3.5-5.1); SODIUM LEVEL 139 MMOL/L (136-145)
[2022-02-14 09:59] LABS: CARBON DIOXIDE LEVEL 27 MMOL/L (20-31)
[2022-02-14 10:02] LABS: HCG, SERUM QUALITATIVE NEGATIVE (NEGATIVE)
[2022-02-14 10:04] LABS: BLOOD UREA NITROGEN 12 MG/DL (9-23)
[2022-02-14 10:05] LABS: CALCIUM LEVEL 9.1 MG/DL (8.5-10.1); GLUCOSE, FASTING 113 MG/DL (60-100)
[2022-02-14 10:06] LABS: ERYTHROCYTE SEDIMENTATION RATE 2 mm/hr (0-20)
[2022-02-14 10:07] LABS: CREATININE FOR GFR 0.76 MG/DL (0.55-1.30); GLOMERULAR FILTRATION RATE > 60.0 (>60)
[2022-02-14 14:22] VITALS: BP 143/77
[2022-02-14] MEDS ORDERED: BACT800T5 PO (14:49)
== END 2022-02-14 15:00 | disposition home or self-care (01) ==
LOC: M ED 08:18
DX: M53.3 Sacrococcygeal disorders, not elsewhere classified (principal); K59.00 Constipation, unspecified; J30.1 Allergic rhinitis due to pollen; Z87.891 Personal history of nicotine dependence; F12.10 Cannabis abuse, uncomplicated; Z91.89 Other specified personal risk factors, not elsewhere classified

== ENCOUNTER → 2022-02-26 | Outpatient (CLI) | payer OTHER ==
[~2022-02-26] MED LIST changes: +BACT800T5 PO; +METR0.759
[2022-02-26 12:26] LABS: HIV 1&2 SCREEN CENTAUR NEGATIVE (NEGATIVE)
[2022-02-26 12:34] LABS: HEPATITIS C VIRUS ABY INDEX 0.2 INDEX (<0.8)
[2022-02-26 12:35] LABS: HEPATITIS B CORE ANTIBODY IGM NEGATIVE (NEGATIVE)
== END ==
LOC: M PLALAB 09:06
PROVIDERS: ATTEND Nurse Practitioner Family
DX: Z11.3 Encounter for screening for infections with a predominantly sexual mode of transmission (principal)

== ENCOUNTER → 2022-08-01 | Outpatient (REF) | payer OTHER | LOC: M SFHCWAGY 10:33 | PROVIDERS: ATTEND Nurse Practitioner Family | DX: Z12.4 Encounter for screening for malignant neoplasm of cervix (principal) ==

== ENCOUNTER 2022-08-18 18:47 | Emergency (ER) | payer OTHER ==
[2022-08-18 21:33] LABS: BASO % 0.5 % (0.0-1.0); EOS # 0.1 10^3/uL (0.0-0.5); EOS % 1.5 % (0.0-3.0); HEMATOCRIT 37.7 % (36.0-47.0); LYMPH # 2.2 10^3/uL (1.5-5.0); LYMPH % 28.1 % (24.0-44.0); MEAN CORPUSCULAR HGB CONC 34.5 g/dl (32.0-36.5); MEAN CORPUSCULAR VOLUME 92.9 fl (80.0-96.0); MONO # 0.6 10^3/uL (0.0-0.8); MONO % 7.1 % (2.0-8.0); NEUTROPHILS # 4.8 10^3/uL (1.5-8.5); NEUTROPHILS % 62.5 % (36.0-66.0); PLATELET COUNT, AUTOMATED 201 10^3/uL (150-450); RED BLOOD COUNT 4.06 10^6/uL (4.00-5.40); WHITE BLOOD COUNT 7.8 10^3/uL (4.0-10.0)
[2022-08-18 21:58] LABS: BLOOD UREA NITROGEN 14 MG/DL (9-23); CALCIUM LEVEL 8.7 MG/DL (8.5-10.1); CARBON DIOXIDE LEVEL 25 MMOL/L (20-31); CHLORIDE LEVEL 107 MMOL/L (98-107); CK-MB VALUE MASS < 1.0 NG/ML (<3.6); CPK CREATINE PHOSPHOKINASE 177 U/L (34-145); CREATININE FOR GFR 0.67 MG/DL (0.55-1.30); GLOMERULAR FILTRATION RATE > 60.0 (>60); GLUCOSE, FASTING 120 MG/DL (60-100); MB/CK RELATIVE INDEX 0.56 (< OR =4); POTASSIUM SERUM 3.6 MMOL/L (3.5-5.1); SODIUM LEVEL 139 MMOL/L (136-145)
[2022-08-18 22:36] VITALS: BP 128/68; TEMP 98.9; O2SAT 98
== END 2022-08-18 22:38 | disposition home or self-care (01) ==
LOC: M ED 18:47
DX: R07.89 Other chest pain (principal); F17.200 Nicotine dependence, unspecified, uncomplicated

== ENCOUNTER → 2022-10-08 | Outpatient (REF) | payer OTHER | LOC: M LAB REF 12:37 | PROVIDERS: ATTEND Physician Assistant Medical | DX: N64.4 Mastodynia (principal) ==

== ENCOUNTER → 2022-10-10 | Outpatient (CLI) | payer OTHER | LOC: M WHC 07:07 | PROVIDERS: ATTEND Physician Assistant Medical | DX: N64.4 Mastodynia (principal) ==

== ENCOUNTER → 2023-04-22 | Outpatient (REF) | payer OTHER ==
[2023-04-22 15:41] LABS: C REACTIVE PROTEIN QUANTITATIV < 0.40 MG/DL (<1.0)
[2023-04-22 15:44] LABS: FREE T4 1.06 NG/DL (0.89-1.76); THYROID STIMULATING HORMONE 0.611 uIU/ML (0.55-4.78)
== END ==
LOC: M SFHCADAM 09:09
PROVIDERS: ATTEND Physician Assistant Medical
DX: N64.4 Mastodynia (principal); N64.52 Nipple discharge

== ENCOUNTER → 2023-10-16 | Outpatient (CLI) | payer OTHER ==
[~2023-10-16] MED LIST changes: -METR0.759; +METR70GE8
== END ==
LOC: M ADAMS 07:59
PROVIDERS: ATTEND Physician Assistant Medical
DX: M25.551 Pain in right hip (principal); M25.552 Pain in left hip; M25.511 Pain in right shoulder; M25.512 Pain in left shoulder

== ENCOUNTER → 2023-10-16 | Outpatient (REF) | payer OTHER ==
[2023-10-16 12:43] LABS: BASO % 0.7 % (0.0-1.0); EOS # 0.1 10^3/uL (0.0-0.5); EOS % 2.4 % (0.0-3.0); HEMATOCRIT 42.6 % (36.0-47.0); HEMOGLOBIN 14.2 g/dl (12.0-15.5); LYMPH # 1.7 10^3/uL (1.5-5.0); LYMPH % 27.9 % (24.0-44.0); MEAN CORPUSCULAR HEMOGLOBIN 30.8 pg (27.0-33.0); MEAN CORPUSCULAR HGB CONC 33.3 g/dl (32.0-36.5); MEAN CORPUSCULAR VOLUME 92.4 fl (80.0-96.0); MONO # 0.5 10^3/uL (0.0-0.8); MONO % 8.1 % (2.0-8.0); NEUTROPHILS # 3.6 10^3/uL (1.5-8.5); NEUTROPHILS % 60.6 % (36.0-66.0); PLATELET COUNT, AUTOMATED 227 10^3/uL (150-450); RED BLOOD COUNT 4.61 10^6/uL (4.00-5.40); WHITE BLOOD COUNT 5.9 10^3/uL (4.0-10.0)
[2023-10-16 12:51] LABS: ERYTHROCYTE SEDIMENTATION RATE 6 mm/hr (0-20)
[2023-10-16 13:05] LABS: C REACTIVE PROTEIN QUANTITATIV < 0.40 MG/DL (<1.0)
[2023-10-16 13:07] LABS: ALBUMIN 4.5 G/DL (3.2-5.2); ALKALINE PHOSPHATASE 55 U/L (46-116); ALT/SGPT 30 U/L (7.0-40); AST/SGOT 17 U/L (<34); BILIRUBIN,TOTAL 0.6 MG/DL (0.3-1.2); BLOOD UREA NITROGEN 18 MG/DL (9-23); CALCIUM LEVEL 9.1 MG/DL (8.5-10.1); CARBON DIOXIDE LEVEL 25 MMOL/L (20-31); CHLORIDE LEVEL 106 MMOL/L (98-107); COMPLEMENT C3 116.1 MG/DL (84.0-160.0); COMPLEMENT C4 22.7 MG/DL (12-36); FOLATE > 24.0 NG/ML (>5.4); GLOMERULAR FILTRATION RATE > 60.0 (>60); GLUCOSE, FASTING 107 MG/DL (60-100); POTASSIUM SERUM 4.1 MMOL/L (3.5-5.1); RHEUMATOID FACTOR QUANT < 3.5 IU/ML (<14); SODIUM LEVEL 137 MMOL/L (136-145); THYROID STIMULATING HORMONE 0.895 uIU/ML (0.55-4.78); TOTAL 25(OH) VITAMIN D 32.9 NG/ML (20.0-100.0); TOTAL PROTEIN 7.4 G/DL (5.7-8.2); VITAMIN B12 LEVEL 437 PG/ML (211-911)
[2023-10-17 14:17] LABS: ANA SCREEN, IFA NEGATIVE (NEGATIVE)
[2023-10-17 22:11] LABS: CYCLIC CITRULLINATED PEPTIDE < 16 UNITS (<20)
[2023-10-18 09:39] LABS: DRVV SCREEN 32.8 SECONDS
[2023-10-18 09:41] LABS: PTT LUPUS TYPE ANTICOAG SCREEN 0.85 (0-1.20)
[2023-10-20 00:21] LABS: LYME TOTAL ANTIBODY CIA <= 0.90 Index (<=0.90)
[2023-10-23 14:52] LABS: HLA-B27 Negative (Negative)
[2023-10-25 01:24] LABS: ANTI DS-DNA AB NEGATIVE (NEGATIVE)
== END ==
LOC: M SFHCADAM 07:52
PROVIDERS: ATTEND Physician Assistant Medical
DX: R41.89 Other symptoms and signs involving cognitive functions and awareness (principal); R51.9 Headache, unspecified; M25.511 Pain in right shoulder; M25.512 Pain in left shoulder; M25.551 Pain in right hip; M25.552 Pain in left hip

== ENCOUNTER → 2023-10-31 | Outpatient (CLI) | payer OTHER | LOC: M RAD 07:47 | PROVIDERS: ATTEND Physician Assistant Medical | DX: R41.89 Other symptoms and signs involving cognitive functions and awareness (principal); R51.9 Headache, unspecified ==

== ENCOUNTER → 2023-11-03 | Outpatient (CLI) | payer OTHER ==
[2023-11-03 14:27] LABS: BASO # 0.1 10^3/uL (0.0-0.2); BASO % 0.6 % (0.0-1.0); EOS # 0.1 10^3/uL (0.0-0.5); EOS % 1.7 % (0.0-3.0); HEMATOCRIT 40.4 % (36.0-47.0); HEMOGLOBIN 14.1 g/dl (12.0-15.5); LYMPH # 1.8 10^3/uL (1.5-5.0); MEAN CORPUSCULAR HEMOGLOBIN 31.9 pg (27.0-33.0); MEAN CORPUSCULAR HGB CONC 34.9 g/dl (32.0-36.5); MEAN CORPUSCULAR VOLUME 91.4 fl (80.0-96.0); MONO # 0.5 10^3/uL (0.0-0.8); MONO % 5.8 % (2.0-8.0); NEUTROPHILS # 5.3 10^3/uL (1.5-8.5); NEUTROPHILS % 68.6 % (36.0-66.0); PLATELET COUNT, AUTOMATED 207 10^3/uL (150-450); RED BLOOD COUNT 4.42 10^6/uL (4.00-5.40); WHITE BLOOD COUNT 7.8 10^3/uL (4.0-10.0)
[2023-11-03 14:42] LABS: ERYTHROCYTE SEDIMENTATION RATE 9 mm/hr (0-20)
[2023-11-03 15:03] LABS: ALBUMIN 4.3 G/DL (3.2-5.2); ALKALINE PHOSPHATASE 53 U/L (46-116); ALT/SGPT 20 U/L (7.0-40); AST/SGOT 13 U/L (<34); BILIRUBIN,TOTAL 0.7 MG/DL (0.3-1.2); BLOOD UREA NITROGEN 13 MG/DL (9-23); CARBON DIOXIDE LEVEL 27 MMOL/L (20-31); CHLORIDE LEVEL 109 MMOL/L (98-107); CREATININE FOR GFR 0.64 MG/DL (0.55-1.30); FERRITIN 28.2 NG/ML (7.3-270.7); GLOMERULAR FILTRATION RATE > 60.0 (>60); GLUCOSE, FASTING 99 MG/DL (60-100); POTASSIUM SERUM 3.7 MMOL/L (3.5-5.1); SODIUM LEVEL 141 MMOL/L (136-145); THYROID STIMULATING HORMONE 0.678 uIU/ML (0.55-4.78); THYROXINE (T4) 6.8 UG/DL (4.5-10.9); TOTAL PROTEIN 7.4 G/DL (5.7-8.2)
[2023-11-03 15:04] LABS: FOLATE > 24.0 NG/ML (>5.4); RHEUMATOID FACTOR QUANT 5.5 IU/ML (<14); TOTAL 25(OH) VITAMIN D 24.8 NG/ML (20.0-100.0); VITAMIN B12 LEVEL 499 PG/ML (211-911)
[2023-11-03 15:07] LABS: FREE THYROXINE INDEX 2.3 % (1.3-4.8); T UPTAKE 34.5 % (22.5-37.0)
== END ==
LOC: M LAB 13:32
PROVIDERS: ATTEND Psychiatry & Neurology Neurology
DX: R25.9 Unspecified abnormal involuntary movements (principal); R20.2 Paresthesia of skin

== ENCOUNTER → 2024-01-06 | Outpatient (CLI) | payer OTHER | LOC: M ADAMS 13:24 | PROVIDERS: ATTEND Physician Assistant Medical | DX: R06.09 Other forms of dyspnea (principal) ==

== ENCOUNTER → 2024-01-07 | Outpatient (REF) | payer OTHER ==
[2024-01-09 16:22] LABS: HPV APTIMA Not Detected (Not Detected)
== END ==
LOC: M SFHCWAGY 18:00
PROVIDERS: ATTEND Nurse Practitioner Family
DX: Z12.4 Encounter for screening for malignant neoplasm of cervix (principal)

== ENCOUNTER → 2024-11-04 | Outpatient (REF) | LOC: M PLAIMG 10:48 | PROVIDERS: ATTEND Internal Medicine | DX: R52 Pain, unspecified (principal) ==